=== PATIENT | female | born 1975 | race Caucasian/White ===

== ENCOUNTER 2016-08-26 19:59 | Inpatient (IN) | payer BC, OTHER ==
[2016-08-26] MEDS ORDERED: Albuterol HFA INHALER* 8 gm MDI INH PRN (21:43)
[2016-08-26] MEDS: Clindamycin 900 MG IVPREMIX(* 900 MG/50 ML SDV IV SCH (21:48)
[2016-08-26] MEDS ORDERED: Oxytocin in LR* 20 UNITS/1,000 ML BAG IVPB SCH (22:00)
[2016-08-26 22:13] LABS: Hematocrit 38 % (35-47); Hemoglobin 12.7 g/dl (12.0-16.0); Mean Corpuscular HGB Conc 34 g/dl (31-36); Mean Corpuscular Hemoglobin 33 pg (27-31); Mean Corpuscular Volume 97 fL (80-97); Mean Platelet Volume 10 um3 (7.4-10.4); Red Blood Count 3.87 10^6/ul (4.0-5.4); Red Cell Distribution Width 14 % (10.5-15); White Blood Count 15.7 10^3/ul (3.5-10.8)
[2016-08-26 22:54] LABS: ALT 13 U/L (7-52); Albumin 3.1 g/dL (3.2-5.2); Alkaline Phosphatase 114 U/L (34-104); BUN/Creatinine Ratio 24.2 (8-20); Blood Urea Nitrogen 16 mg/dL (6-24); CO2 Carbon Dioxide 18 mmol/L (22-32); Calcium 9.1 mg/dL (8.6-10.3); Chloride 103 mmol/L (101-111); EGFR African American 125.7 (>60); EGFR Non-African American 97.7 (>60); Globulin 2.9 g/dL (2-4); Glucose 102 mg/dL (70-100); Sodium 131 mmol/L (133-145); Uric Acid 6.5 mg/dL (2.3-6.6)
[2016-08-26 23:00] LABS: Anion Gap 10 mmol/L (2-11)
[2016-08-27] MEDS ORDERED: Nalbuphine* 20 MG/ML 1 ML VIAL ONE (03:49)
[2016-08-27] MEDS ORDERED: Promethazine INJ(RESTRICTED)* 25 MG/ML 1 ML VIAL ONE (03:50)
[2016-08-27] MEDS: Clindamycin 900 MG IVPREMIX(* 900 MG/50 ML SDV IV SCH ×3 (06:08→20:48)
[2016-08-27] MEDS ORDERED: OBEPIDURAL* 250 ML ONE (07:26)
[2016-08-27] MEDS ORDERED: Sodium Citrate/Citric Acid* 15 ML UDC PO PRN (08:13)
[2016-08-27] MEDS ORDERED: EPHEDrine (Pressors)* 50 MG/ML VIAL IV PUSH PRN (08:13)
[2016-08-27] MEDS ORDERED: Phenylephrine IV* 40 MCG/ML 10 ML SYRINGE IV PUSH PRN (08:13)
[2016-08-27] MEDS ORDERED: Famotidine TAB* 20 MG PO PRN (08:13)
[2016-08-27] MEDS: PTO: Methyldopa TAB* 250 MG PO SCH (09:57)
[2016-08-27] MEDS: Labetalol TAB* 100 MG PO SCH ×2 (09:57→20:27)
[2016-08-27] MEDS ORDERED: Witch Hazel PAD* JAR TOPICAL PRN (13:34)
[2016-08-27] MEDS ORDERED: Dibucaine 1% 28.35 GM TUBE PR PRN (13:34)
[2016-08-27] MEDS ORDERED: Glycerin ADULT SUPP PR PRN (13:34)
[2016-08-27] MEDS: Docusate CAP* 100 MG PO SCH ×2 (16:40→22:33)
[2016-08-27] MEDS: Ibuprofen TAB* 600 MG PO PRN ×2 (16:40→22:32)
[2016-08-27] MEDS: Famotidine TAB* 20 MG PO SCH ×2 (20:25→22:33)
[2016-08-27] MEDS: OBEPIDURAL* 250 ML EPIDURAL SCH (20:25)
[2016-08-27] MEDS: Simethicone CHEW TAB* 80 MG PO SCH ×2 (20:26→22:27)
[2016-08-27] MEDS: Acetaminophen TAB* 325 MG PO PRN (21:10)
[2016-08-28] MEDS: Ibuprofen TAB* 600 MG PO PRN ×3 (04:36→20:12)
[2016-08-28] MEDS: Clindamycin 900 MG IVPREMIX(* 900 MG/50 ML SDV IV SCH ×2 (06:20→22:06)
[2016-08-28] MEDS: PTO: Methyldopa TAB* 250 MG PO SCH ×3 (06:21→20:13)
[2016-08-28 07:58] LABS: Hematocrit 33 % (35-47); Mean Corpuscular HGB Conc 33 g/dl (31-36); Mean Corpuscular Hemoglobin 33 pg (27-31); Mean Corpuscular Volume 99 fL (80-97); Mean Platelet Volume 10 um3 (7.4-10.4); Red Blood Count 3.34 10^6/ul (4.0-5.4); Red Cell Distribution Width 14 % (10.5-15); White Blood Count 15.2 10^3/ul (3.5-10.8)
[2016-08-28] MEDS: Labetalol TAB* 100 MG PO SCH ×2 (08:58→20:13)
[2016-08-28] MEDS: Famotidine TAB* 20 MG PO SCH ×2 (08:59→20:13)
[2016-08-28] MEDS: Docusate CAP* 100 MG PO SCH ×3 (08:59→20:13)
[2016-08-28] MEDS ORDERED: Ferrous Gluconate TAB* 324 MG TAB PO SCH (09:00)
--- NOTE | 2016-08-28 10:30 | PTEDU ---
Patient Name: WARDSADI PEDRO SADI JENSEN selected video: Never Ever Shake a Baby to view on 08/28/2016 at 10:29:32 AM from Brianna [id number]
[2016-08-28] MEDS: Acetaminophen TAB* 325 MG PO PRN (14:30)
[2016-08-28] MEDS: OBEPIDURAL* 250 ML EPIDURAL SCH (22:06)
[2016-08-29] MEDS: Ibuprofen TAB* 600 MG PO PRN ×2 (03:49→16:01)
[2016-08-29 08:12] VITALS: BP 142/84
[2016-08-29] MEDS: Docusate CAP* 100 MG PO SCH ×4 (08:46→20:46)
[2016-08-29] MEDS: Famotidine TAB* 20 MG PO SCH ×2 (08:46→20:46)
[2016-08-29] MEDS: PTO: Methyldopa TAB* 250 MG PO SCH ×2 (08:47→20:46)
[2016-08-29] MEDS: Labetalol TAB* 100 MG PO SCH ×2 (08:47→20:46)
== END 2016-08-29 19:45 | disposition home or self-care (01) | DRG 560 ==
LOC: MCHOBOUT 19:59 → MCHOB 20:34
PROVIDERS: ADMIT Obstetrics & Gynecology; ATTEND Obstetrics & Gynecology
PROC: 10E0XZZ Delivery of Products of Conception, External Approach (ICD-10-PCS; principal; 2016-08-27)
PROC: 0HQ9XZZ Repair Perineum Skin, External Approach (ICD-10-PCS; 2016-08-27)
PROC: 4A1HXCZ Monitoring of Products of Conception, Cardiac Rate, External Approach (ICD-10-PCS; 2016-08-27)
DX: O10.92 Unspecified pre-existing hypertension complicating childbirth (principal); Z68.42 Body mass index [BMI] 45.0-49.9, adult; O99.824 Streptococcus B carrier state complicating childbirth; Z88.1 Allergy status to other antibiotic agents; Z88.0 Allergy status to penicillin; O70.0 First degree perineal laceration during delivery; O99.214 Obesity complicating childbirth; E66.01 Morbid (severe) obesity due to excess calories; Z37.0 Single live birth; Z3A.38 38 weeks gestation of pregnancy
CPT/HCPCS: 36415; 80053; 84550; 85025; 86850; 86900; 86901; A9270-GY; J2300; J2550